=== PATIENT | male | born 1950 | race Caucasian/White ===

== ENCOUNTER 2024-05-12 16:55 | Emergency (ER) | payer MEDICARE, OTHER ==
[~2024-05-12 16:55] MED LIST: Iopamidol 370 76% 100 ML VIAL ONE
[2024-05-12] MEDS ORDERED: Norepinephrine 4 MG/4 ML VIAL ONE ×2 (17:10→17:13)
[2024-05-12 17:46] LABS: #Basophils 0.03 10x3/uL (0.0-0.2); #Eosinphils 0.03 10x3/uL (0.0-0.5); #Neutrophils 13.07 10x3/uL (1.5-8.4); %Basophils 0.2 % (0.0-2.0); %Eosinophils 0.2 % (0.0-6.0); %Lymphocytes 2.1 % (18.0-47.0); %Monocytes 9.4 % (0.0-10.0); %Neutrophils 87.3 % (40.0-75.0); Hemoglobin 13.4 g/dL (13.5-17.5); Mean Corpuscular HGB CONC 33.5 g/dL (32.0-36.0); Mean Corpuscular Volume 92.6 fL (81.2-95.1); Mean Platelet Volume 9.9 fL (7.4-10.4); Platelet Count 129 10x3/uL (150-450); RBC Distribution Width 13.6 % (11.5-14.5); Red Blood Cell (RBC) Count 4.32 10x6/uL (4.32-5.72)
[2024-05-12 18:05] LABS: ALT (SGPT) 14 U/L (8-55); AST (SGOT) 15 U/L (5-34); Albumin 3.3 g/dL (3.4-4.8); Alkaline Phosphatase 87 U/L (40-110); Anion Gap 16 mmol/L (10-20); BUN (Urea Nitrogen) 36 mg/dL (8.4-25.7); Bilirubin, Total 1.3 mg/dL (0.2-1.2); Calc. Creatinine Clearance 0 mL/min (70-130); Calcium 8.6 mg/dL (7.8-10.44); Carbon Dioxide 21 mmol/L (23-31); Chloride 103 mmol/L (98-107); Estimated GFR 61; Globulin 2.9 g/dL (2.4-3.5); Glucose 106 mg/dL (83-110); Potassium 3.7 mmol/L (3.5-5.1); Protein, Total 6.2 g/dL (5.8-8.1); Sodium 136 mmol/L (136-145)
[2024-05-12] MEDS ORDERED: Cefepime 2 GM VIAL ONE (18:09)
[2024-05-12 18:11] LABS: Troponin I 0.038 ng/mL (< 0.028)
[2024-05-12] MEDS ORDERED: Lidocaine 1% (PF) 30 ML VIAL ONE (18:13)
[2024-05-12] MEDS ORDERED: VANCOMYCIN 2 GRAM/400 ML BAG 2 GM in Premix 1 BAG IVPB SCH (19:15)
[2024-05-12 20:10] LABS: Bilirubin Neg (Negative); Blood, Urine Negative (Negative); Clarity Clear (Clear); Glucose, Urine (Dipstick) Normal (Negative); Ketone, Urine Negative (Negative); Leukocyte Negative (Negative); Nitrite Negative (Negative); Protein, Urine (Dipstick) Negative (Neg-Trace); Urobilinogen Normal mg/dL (Less than 2)
[2024-05-12] MEDS ORDERED: Enoxaparin 100 MG (1 mL) SYRINGE ONE (20:58)
[2024-05-12 21:15] LABS: Bacteria/HPF Rare-Few HPF (None Seen); CAUTI Indications for Culture Pelvic or flank pain; RBC/HPF 0-3 HPF (0-3); Squamous Epithelial 0-3 HPF (0-3); WBC/HPF 0-3 HPF (0-3)
[2024-05-12 21:16] LABS: Mucous/LPF Few LPF (<2+)
[2024-05-12 21:18] LABS: Urine Culture Reflex No No
[2024-05-15 08:19] LABS: Actual Bicarbonate (HCO3v) 24.6 mEq/L (22-28); Analyzer IN Cardio CS ER; Base Excess 0.1 mEq/L (-2 - +2); Calcium, Ionized (venous) 1.12 mmol/L (1.16-1.32); Chloride (VBG) 101 mmol/L (98-106); Hematocrit-VBG 41 % (42.0-52.0); Potassium (VBG) 3.61 mmol/L (3.70-5.30); Puncture Site Other Site; Sodium 136 mmol/L (133-146); pH (venous) 7.412 (7.32-7.43)
== END 2024-05-12 22:39 | disposition short-term general hospital (02) ==
LOC: CSHERS 16:55
DX: A41.9 Sepsis, unspecified organism (principal); I10 Essential (primary) hypertension
CPT/HCPCS: 71275; 74177; 80053; 81001; 82805; 83605; 84484; 85025; 87040; 87077; 87149 ×2; 93005; J0692; J1650; J2001; J3370; Q9967; 36415; 87076; 96365; 96366; 96368; 96372; 99292